=== PATIENT | female | born 1945 | race Caucasian/White ===

== ENCOUNTER 2024-02-14 06:58 | Day surgery (SDC) | payer MEDICARE ==
[2024-02-13 14:19] LABS: BASOPHILS % (AUTO) 0.6 % (0-1); EOSINOPHILS # (AUTO) 0.1 X10'3 (0-0.9); EOSINOPHILS % (AUTO) 1.7 % (0-6); HEMATOCRIT 28.3 % (35.0-45.0); HEMOGLOBIN 9.2 g/dl (12.0-16.0); LYMPHOCYTES # (AUTO) 1.2 X10'3 (1.1-4.8); LYMPHOCYTES % (AUTO) 16.2 % (21-51); MEAN CORPUSCULAR HEMOGLOBIN 30.9 PG (27.0-31.0); MEAN CORPUSCULAR HGB CONC 32.6 g/dL (33.0-36.5); MEAN CORPUSCULAR VOLUME 94.8 FL (78-98); MEAN PLATELET VOLUME 8.7 FL (7.4-10.4); MONOCYTES # (AUTO) 0.3 X10'3 (0-0.9); MONOCYTES % (AUTO) 3.6 % (2-12); NEUTROPHILS # (AUTO) 5.8 X10'3 (1.8-7.7); NEUTROPHILS % (AUTO) 77.9 % (42-75); PLATELET COUNT 130 X10'3 (140-440); RED BLOOD COUNT 2.98 X10'6 (4.20-5.60); RED CELL DISTRIBUTION WIDTH 17.5 % (11.5-14.5); WHITE BLOOD COUNT 7.5 X10'3 (4.5-11.0)
[2024-02-14] VITALS (18 sets, daily range): BP systolic 118–145; BP diastolic 53–87; PULSE 51–95; RESP 15–27; TEMP 99.1; O2SAT 93–99
[~2024-02-14] VITALS: Ht 157.5 cm; Wt 60.8 kg
[2024-02-14] MEDS ORDERED: atropine 0.1mg/ml 10ml syringe IV ONE (07:25)
[2024-02-14] MEDS ORDERED: normal saline 1000ml 1,000 ML IV SCH (07:25)
[2024-02-14] MEDS ORDERED: AMI200T PO (07:28)
[2024-02-14] MEDS ORDERED: APIX5TAB3 PO (07:28)
[2024-02-14] MEDS ORDERED: EZET10TA48 PO (07:28)
[2024-02-14] MEDS ORDERED: PHO667C PO (07:28)
[2024-02-14] MEDS ORDERED: METO-384 PO (07:28)
[2024-02-14] MEDS ORDERED: ZINC220C12 PO (07:28)
[2024-02-14] MEDS ORDERED: LOSA25TA41 PO (07:28)
[2024-02-14] MEDS ORDERED: VITA1TAB57 PO (07:28)
[2024-02-14] MEDS ORDERED: OMEP40CA21 PO (07:28)
[2024-02-14] MEDS ORDERED: ROSU10TA72 PO (07:28)
[2024-02-14] MEDS: diphenhydrAMINE 25mg capsule PO ONE (07:50)
[2024-02-14] MEDS: LORazepam 0.5 MG tablet PO ONE (07:50)
[2024-02-14 08:05] LABS: BASOPHILS % (AUTO) 0.4 % (0-1); EOSINOPHILS # (AUTO) 0.1 X10'3 (0-0.9); HEMATOCRIT 25.3 % (35.0-45.0); HEMOGLOBIN 8.1 g/dl (12.0-16.0); LYMPHOCYTES # (AUTO) 1.2 X10'3 (1.1-4.8); LYMPHOCYTES % (AUTO) 17.9 % (21-51); MEAN CORPUSCULAR HEMOGLOBIN 30.4 PG (27.0-31.0); MEAN CORPUSCULAR HGB CONC 32.1 g/dL (33.0-36.5); MEAN CORPUSCULAR VOLUME 94.6 FL (78-98); MONOCYTES # (AUTO) 0.3 X10'3 (0-0.9); MONOCYTES % (AUTO) 4.4 % (2-12); NEUTROPHILS # (AUTO) 4.9 X10'3 (1.8-7.7); NEUTROPHILS % (AUTO) 75.3 % (42-75); PLATELET COUNT 112 X10'3 (140-440); RED BLOOD COUNT 2.68 X10'6 (4.20-5.60); RED CELL DISTRIBUTION WIDTH 17.4 % (11.5-14.5); WHITE BLOOD COUNT 6.5 X10'3 (4.5-11.0)
[2024-02-14 08:11] LABS: ALBUMIN 2.6 G/DL (3.4-5.0); ANION GAP 8 (8-16); BLOOD UREA NITROGEN 21 MG/DL (7-18); BUN/CREATININE RATIO 4.7 (10.0-20.0); CALCIUM 9.2 MG/DL (8.5-10.1); CHLORIDE 101 MMOL/L (99-107); CREATININE 4.47 MG/DL (0.40-0.90); GLUCOSE 126 MG/DL (70-104); POTASSIUM 3.3 MMOL/L (3.5-5.1); SODIUM 142 MMOL/L (135-145); TOTAL CARBON DIOXIDE 33.1 MMOL/L (24-32); eCRCL 8 ML/MIN; eGFR 10 ML/MIN
[2024-02-14 08:12] LABS: INR 1.4 INR; PROTHROMBIN TIME 14.6 SECONDS (9.0-12.0)
[2024-02-14] MEDS: amiodarone 150mg/dext, iso-os 100 ML IV ONE (09:37)
[2024-02-14] MEDS: MIDAZolam 1mg/ml 10ml vial IV ONE (09:57)
[2024-02-14] MEDS: morphine 10mg/ml inj. IV ONE (09:58)
== END 2024-02-14 11:15 | disposition home or self-care (01) ==
LOC: SSTAY O 06:58
PROVIDERS: ATTEND Internal Medicine Cardiovascular Disease
DX: I48.91 Unspecified atrial fibrillation (principal); R06.09 Other forms of dyspnea; R53.83 Other fatigue; R00.2 Palpitations; I13.11 Hypertensive heart and chronic kidney disease without heart failure, with stage 5 chronic kidney disease, or end stage renal disease; N18.6 End stage renal disease; E78.5 Hyperlipidemia, unspecified; Z87.891 Personal history of nicotine dependence; Z79.01 Long term (current) use of anticoagulants; Z79.899 Other long term (current) drug therapy; Z99.2 Dependence on renal dialysis; Z98.890 Other specified postprocedural states; Z88.5 Allergy status to narcotic agent
CPT/HCPCS: 36415; 80048; 85025; 85610; 92960; 93005; J0282; J2250; J2270; J7030; Q0163; J2274